=== PATIENT | male | born 1990 | race Caucasian/White ===

== ENCOUNTER 2016-10-07 17:50 | Emergency (ER) | payer BC ==
[2016-10-07 18:01] VITALS: BP 157/70
[2016-10-07 18:39] LABS: CHLORIDE,CL 102 mmol/L (101-111); SODIUM,NA 137 mmol/L (135-145)
[2016-10-07] MEDS ORDERED: cefTRIAXone 1 GM, Lidocaine 1% 2.1 ML IM ONE ×2 (18:43)
[2016-10-07] MEDS ORDERED: Loratadine 10 MG Tab PO ONE (18:45)
--- NOTE | 2016-10-07 18:56 | EDM.PDOC ---
Scribed by Sabina Quezada 10/07/16 [id number] for Wallace Burns MD ED HPI ENT - General Chief Complaint: ENT Problem Stated Complaint: NOT FEELING WELL Time Seen by Provider: 10/07/16 18:00 Source of Information: Reports: Patient, RN, RN notes reviewed History Limitations: Reports: No limitations - History of Present Illness INITIAL COMMENTS - FREE TEXT/NARRATIVE: Patient complaining of 2 week duration of cough, sore throat and fever. On and off x2 days. Complaining of some central chest pressure while coughing. Denies wheezing or shortness of breath. Timing/Duration: Reports: Week(s): (1), Constant Severity: moderate Location: Reports: throat Quality: Reports: Ache Improves with: Reports: None Worsens with: Reports: None Associated Symptoms: Reports: no other symptoms - Related Data Allergies/ADRs: Allergies Allergy/AdvReac Type Severity Reaction Status Date / Time Penicillins Allergy Rash Verified 10/07/16 17:55 Home Meds: Home Meds Ibuprofen [Advil] 400 mg PO ASDIRECTED PRN 06/26/16 [History] Past Medical History - Past Health History Medical/Surgical History: Denies Medical/Surgical History HEENT History: Reports: Impaired vision, Other (see below) (multiple strep throat.) Other HEENT History: wears corrective lens Respiratory History: Reports: Bronchitis, recurrent, Pneumonia, recurrent, SOB Genitourinary History: Reports: UTI, recurrent Social & Family History - Family History Family Medical History: Noncontributory - Tobacco Use Smoking Status *Q: Current Every Day Smoker Years of Tobacco use: 5 Packs/Tins Daily: 1 Second Hand Smoke Exposure: Yes - Caffeine Use Caffeine Use: Reports: None - Alcohol Use Days Per Week of Alcohol Use: 0 Number of Drinks Per Day: 5 Total Drinks Per Week: 0 - Recreational Drug Use Recreational Drug Use: No ED ROS ENT - Review of Systems Review Of Systems: ROS reveals no pertinent complaints other than HPI. ED EXAM, ENT - Physical Exam Exam: See Below Exam Limited By: No limitations General Appearance: alert, WD/WN, no apparent distress Eye Exam: bilateral eye: normal inspection Ears: normal external exam, normal canal, hearing grossly normal, normal TMs Nose: normal inspection, normal mucousa, no blood Mouth/Throat: Other (pharyngeal erythema. No exudates.) Head: atraumatic, normocephalic Neck: normal inspection, supple, non-tender, full range of motion Respiratory/Chest: no respiratory distress, other (dry cough). No: rhonchi, wheezing Cardiovascular: regular rate, rhythm (without murmur.), tachycardia GI/Abdominal: other (obese, benign abdomen.) Back: normal inspection, full range of motion Extremities: normal inspection, normal range of motion, non-tender, no pedal edema, normal capillary refill Neurological: alert, oriented, CN II-XII intact, normal cognition, normal gait, normal reflexes, no motor/sensory deficits Psychiatric: normal affect, normal mood Skin: Warm, Dry, Intact, Normal color, No rash Lymphatic: no adenopathy EKG INTERPRETATION EKG Date: 10/07/16 Time: 17:56 Rhythm: other (sinus tachycardia) Rate (beats/min): 110 [place]: normal P-wave: present QRS: normal ST-T: normal QT: normal Comparison: NA - no prior EKG Course - Vital Signs Last Recorded V/S: Last Vital Signs Temp 36.0 C 10/07/16 17:56 Pulse 117 H 10/07/16 17:56 Resp 20 10/07/16 17:56 BP 157/70 H 10/07/16 17:56 Pulse Ox 99 10/07/16 17:56 - Orders/Labs/Meds Orders: Active Orders 24 hr Category Date Time Status EKG 12 Lead [EKG Documentation Completion] [RC] STAT Care 10/07/16 18:08 Active Labs: Laboratory Tests 10/07/16 10/07/16 Range/Units 18:15 18:15 WBC 7.6 (5.0-10.0) 10^3/uL RBC 5.01 (4.6-6.2) 10^6/uL Hgb 15.6 (14.0-18.0) g/dL Hct 44.3 (40.0-54.0) % MCV 88.4 (80-100) fL MCH 31.1 (27.0-34.0) pg MCHC 35.2 H (33.0-35.0) g/dL Plt Count 186 (150-450) 10^3/uL Neut % (Auto) 62.6 (42.2-75.2) % Lymph % (Auto) 19.1 L (20.5-50.1) % [place] % (Auto) 14.3 H (2-8) % Eos % (Auto) 3.7 H (1.0-3.0) % Baso % (Auto) 0.3 (0.0-1.0) % Sodium 137 (135-145) mmol/L Potassium 4.1 (3.6-5.0) mmol/L Chloride 102 (101-111) mmol/L Carbon Dioxide 26.0 (21.0-31.0) mmol/L Anion Gap 13.1 BUN 17 (7-18) mg/dL Creatinine 0.9 (0.6-1.3) mg/dL Est Cr Clr Drug Dosing 122.44 mL/min Estimated GFR (MDRD) > 60 BUN/Creatinine Ratio 18.88 Glucose 93 (74-105) mg/dL Calcium 9.3 (8.4-10.2) mg/dl Total Bilirubin 0.6 (0.2-1.0) mg/dL AST 24 (10-42) IU/L ALT 38 (10-60) IU/L Alkaline Phosphatase 49 (42-121) IU/L Troponin I < 0.02 (0.00-0.02) ng/ml Total Protein 7.3 (6.7-8.2) g/dl Albumin 4.3 (3.2-5.5) g/dl Globulin 3.0 Albumin/Globulin Ratio 1.43 Strep: Negative. CBC is elevated. Meds: Medications Discontinued Medications Generic Name Dose Route Start Last Admin Trade Name Freq PRN Reason Stop Dose Admin Ceftriaxone Sodium 1 gm/ 0 gm 10/07/16 18:43 Lidocaine HCl 2.1 ml IM 10/07/16 18:44 ONETIME ONE Loratadine 10 mg 10/07/16 18:45 Claritin PO 10/07/16 18:46 ONETIME ONE - Radiology Interpretation Free Text/Narrative:: Chest x-ray: Per rad report shows no focal infiltrate. Departure - Departure Time of Disposition: 18:48 Disposition: Home, Self-Care 01 Condition: fair Clinical Impression: Strep pharyngitis Instructions: Strep Throat, [id number] Forms: ED Department Discharge Additional Instructions: Clindamycin 300mg. Follow up in clinic if not better in 2-3 days. - My Orders Last 24 Hours: My Active Orders 10/07/16 18:08 EKG 12 Lead [EKG Documentation Completion] [RC] STAT - Assessment/Plan Last 24 Hours: My Active Orders 10/07/16 18:08 EKG 12 Lead [EKG Documentation Completion] [RC] STAT I have read and agree with the documentation that has been completed regarding this visit. By signing this record, I attest that the documentation was completed in my physical presence and is an accurate record of the encounter.
--- NOTE | 2016-11-20 12:52 | EKG ---
10/07/2016 - [facility] - Twelve-lead EKG shows sinus tachycardia with heart rate of 110. Nonspecific ST- T wave changes noted on lead V2, V3. No significant ST elevation or ST depression noted on this 12-lead EKG. [facility] /[id number]
== END 2016-10-07 19:06 | disposition home or self-care (01) ==
LOC: DL.ED 17:50
DX: J02.0 Streptococcal pharyngitis (principal); F17.210 Nicotine dependence, cigarettes, uncomplicated; Z87.01 Personal history of pneumonia (recurrent); Z87.440 Personal history of urinary (tract) infections; Z88.0 Allergy status to penicillin
CPT/HCPCS: 36415; 71020; 80053; 84484; 85025; 87430; 93005; 96372; 99283; A9270; J0696

== ENCOUNTER 2016-12-03 18:26 | Emergency (ER) | payer BC ==
[2016-12-03 19:01] VITALS: BP 134/76
--- NOTE | 2016-12-03 19:27 | EDM.PDOC ---
ED HPI ENT - General Chief Complaint: ENT Problem Stated Complaint: COLD [id number] Time Seen by Provider: 12/03/16 19:20 Source of Information: Reports: Patient History Limitations: Reports: No limitations - History of Present Illness INITIAL COMMENTS - FREE TEXT/NARRATIVE: This 26 yo male patient reports to the ED with a 2-3 day history of congestion and a 2 day history of an increasing sore throat. The patient reports he has had strep throat 3 month ago and 6 months ago with concern that it came back. 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 - Related Data Allergies/ADRs: Allergies Allergy/AdvReac Type Severity Reaction Status Date / Time Penicillins Allergy Rash Verified 12/03/16 19:01 Home Meds: Home Meds Ibuprofen [Advil] 400 mg PO ASDIRECTED PRN 06/26/16 [History] Past Medical History - Past Health History Medical/Surgical History: Denies Medical/Surgical History HEENT History: Reports: Impaired vision, Other (see below) Other HEENT History: wears corrective lens Respiratory History: Reports: Bronchitis, recurrent, Pneumonia, recurrent, SOB Other Respiratory History: pharyngitis Genitourinary History: Reports: UTI, recurrent Social & Family History - Family History Family Medical History: Noncontributory - Tobacco Use Smoking Status *Q: Current Every Day Smoker Years of Tobacco use: 5 Packs/Tins Daily: 20 Second Hand Smoke Exposure: Yes - Caffeine Use Caffeine Use: Reports: None - Alcohol Use Days Per Week of Alcohol Use: 0 Number of Drinks Per Day: 5 Total Drinks Per Week: 0 Date of Last Drink: 11/19/16 - Recreational Drug Use Recreational Drug Use: No ED ROS ENT - Review of Systems Review Of Systems: ROS reveals no pertinent complaints other than HPI. ED EXAM, ENT - Physical Exam Exam: See Below Exam Limited By: No limitations General Appearance: alert, WD/WN, mild distress Eye Exam: bilateral eye: EOMI, normal inspection, PERRL Ears: normal external exam, normal canal, hearing grossly normal, normal TMs Nose: normal inspection, normal mucousa, no blood Mouth/Throat: Normal gums, Normal lips, Normal teeth, Pharyngeal erythema Head: atraumatic, normocephalic Neck: normal inspection, supple, non-tender, full range of motion Respiratory/Chest: no respiratory distress, lungs clear, normal breath sounds, no accessory muscle use, chest non-tender Cardiovascular: normal peripheral pulses, regular rate, rhythm, no edema, no gallop, no JVD, no murmur, no rub GI/Abdominal: normal bowel sounds, soft, non tender, no organomegaly, no distention, no abnormal bruit, no mass (Male) Exam: Deferred Rectal (Males) Exam: Deferred Back: normal inspection, full range of motion Extremities: normal inspection, normal range of motion, non-tender, no pedal edema, normal capillary refill Neurological: alert, oriented, CN II-XII intact, normal cognition, normal gait, normal reflexes, no motor/sensory deficits Psychiatric: normal affect, normal mood Skin: Warm, Dry, Intact, Normal color, No rash Lymphatic: no adenopathy Course - Vital Signs Last Recorded V/S: Last Vital Signs Temp 37.3 C 12/03/16 18:50 Pulse 101 H 12/03/16 18:50 Resp 18 12/03/16 18:50 BP 134/76 12/03/16 18:50 Pulse Ox 99 12/03/16 18:50 - Orders/Labs/Meds Orders: Active Orders 24 hr Category Date Time Status CULTURE STREP A CONFIRMATION [] Stat Lab 12/03/16 18:50 Results STREP SCRN A RAPID W CULT CONF [] Stat Lab 12/03/16 18:50 Received Departure - Departure Time of Disposition: 19:30 Disposition: Home, Self-Care 01 Condition: fair Clinical Impression: URI (upper respiratory infection) Qualifiers: URI type: unspecified URI Qualified Code(s): J06.9 - Acute upper respiratory infection, unspecified Pharyngitis Qualifiers: Pharyngitis/tonsillitis etiology: unspecified etiology Qualified Code(s): J02.9 - Acute pharyngitis, unspecified Instructions: Upper Respiratory Infection, Adult, [id number], Pharyngitis, [id number] Forms: ED Department Discharge Care Plan Goals: The patient was advised of the examination and initial lab results during the visit. The patient was given a script for Azithromycin (250 mg) #6 to take 2 by mouth on day 1 and 1 by mouth on days 2-5. The patient should fill the script if his symptoms continue or get worse by tomorrow. If the patient has any additional symptoms or further concerns, the patient should follow-up with his primary care facility or return to the emergency department. - My Orders Last 24 Hours: My Active Orders 12/03/16 18:50 CULTURE STREP A CONFIRMATION [RM] Stat STREP SCRN A RAPID W CULT CONF [RM] Stat - Assessment/Plan Last 24 Hours: My Active Orders 12/03/16 18:50 CULTURE STREP A CONFIRMATION [RM] Stat STREP SCRN A RAPID W CULT CONF [RM] Stat
== END 2016-12-03 19:33 | disposition home or self-care (01) ==
LOC: DL.ED 18:26
DX: J06.9 Acute upper respiratory infection, unspecified (principal); F17.210 Nicotine dependence, cigarettes, uncomplicated; Z88.0 Allergy status to penicillin; Z87.01 Personal history of pneumonia (recurrent); Z87.440 Personal history of urinary (tract) infections
CPT/HCPCS: 87081; 87430; 99283